=== PATIENT | female | born 1970 | race Caucasian/White ===

== ENCOUNTER → 2018-07-28 | Outpatient (CLI) | payer BC | LOC: M.RAD 08:30 | DX: Z12.31 Encounter for screening mammogram for malignant neoplasm of breast (principal); J45.909 Unspecified asthma, uncomplicated ==

== ENCOUNTER → 2019-08-24 | Outpatient (CLI) | payer BC ==
[~2019-08-24] MED LIST: KEFLEX500 M1 PO; LISINOPRIL2.5 MG PO; WELLBUTRIN SR150 M1 PO
== END ==
LOC: M.RAD 08:03
DX: Z12.31 Encounter for screening mammogram for malignant neoplasm of breast (principal)

== ENCOUNTER 2019-08-31 10:35 | Emergency (ER) | payer BC ==
[~2019-08-31] VITALS: Ht 154.9 cm; Wt 77.1 kg
[2019-08-31] MEDS ORDERED: WELLBUTRIN SR150 M1 PO (10:44)
[2019-08-31] MEDS ORDERED: LISINOPRIL2.5 MG PO (10:44)
[2019-08-31] MEDS ORDERED: KEFLEX500 M1 PO (11:07)
[2019-08-31 11:20] VITALS: BP 176/104
== END 2019-08-31 11:22 | disposition home or self-care (01) ==
LOC: M.ERS 10:35
DX: S01.311A Laceration without foreign body of right ear, initial encounter (principal); S00.03XA Contusion of scalp, initial encounter; F41.9 Anxiety disorder, unspecified; F32.9 Major depressive disorder, single episode, unspecified; I10 Essential (primary) hypertension; J45.909 Unspecified asthma, uncomplicated; Z88.1 Allergy status to other antibiotic agents; Z88.2 Allergy status to sulfonamides; W22.8XXA Striking against or struck by other objects, initial encounter; Y93.89 Activity, other specified; Y92.89 Other specified places as the place of occurrence of the external cause; Y99.8 Other external cause status

== ENCOUNTER → 2019-10-26 | Outpatient (CLI) | payer BC | LOC: M.ULTRA 08:54 | DX: K76.0 Fatty (change of) liver, not elsewhere classified (principal); Z90.49 Acquired absence of other specified parts of digestive tract ==

== ENCOUNTER 2020-07-08 19:33 | Emergency (ER) | payer BC ==
[~2020-07-08] VITALS: Ht 157.5 cm; Wt 74.8 kg
[2020-07-08] MEDS ORDERED: MEDROLDOSEPACK PO (20:41)
[2020-07-08] MEDS ORDERED: FLUOCINOLONE AC60 GM TOP (20:41)
[2020-07-08 20:57] VITALS: BP 167/84
== END 2020-07-08 20:47 | disposition home or self-care (01) ==
LOC: M.ERS 19:33
DX: L50.9 Urticaria, unspecified (principal); L25.9 Unspecified contact dermatitis, unspecified cause; J45.909 Unspecified asthma, uncomplicated; I10 Essential (primary) hypertension; Z88.1 Allergy status to other antibiotic agents; Z88.2 Allergy status to sulfonamides; Z88.6 Allergy status to analgesic agent